=== PATIENT | female | born 1995 | race Caucasian/White ===

== ENCOUNTER 2016-12-22 14:45 | Emergency (ER) | payer MEDICAID ==
[2016-12-22 14:51] VITALS: BP 103/68; TEMP 97.5
--- NOTE | 2016-12-22 15:23 | EDPHY ---
H & P Time Seen by Provider: 12/22/16 15:12 HPI/ROS: CHIEF COMPLAINT: Medication refill. HISTORY OF PRESENT ILLNESS: The patient is a 21-year-old female with history of asthma, now 22 weeks , requesting a steroid inhaler. The patient recently had bronchitis and was given an inhaler. She recently ran out and is requesting a refill. The patient is unsure of the type of inhaler she uses. She states she continues to feel short of breath after walking. She denies chest pain. REVIEW OF SYSTEMS: A comprehensive 10 point review of systems is otherwise negative aside from elements mentioned in the history of present illness. Past Medical/Surgical History: Asthma, Currently 22 weeks . Tachycardia Social History: Nonsmoker. Smoking Status: Never smoked Physical Exam: General Appearance: Alert, pleasant Eyes: Pupils equal and round, no conjunctival pallor or injection ENT, Mouth: Mucous membranes moist Neck: Normal inspection Respiratory: Lungs are clear to auscultation Cardiovascular: Regular rate and rhythm Gastrointestinal: Abdomen is soft and non-tender Neurological: A&O, nonfocal, normal gait Skin: Warm and dry, no rash Extremities: Nontender, no pedal edema Psychiatric: Mood and affect normal Constitutional: Initial Vital Signs Temperature (C) 36.4 C 12/22/16 14:49 Heart Rate 121 H 12/22/16 14:49 Respiratory Rate 14 12/22/16 14:49 Blood Pressure 103/68 12/22/16 14:49 O2 Sat (%) 96 12/22/16 14:49 O2 Delivery Mode Room Air Allergies/Adverse Reactions: No Known Allergies Allergy (Unverified 12/22/16 14:51) Home Medications: Medication Instructions Recorded Fluticasone/Salmeter 250/50Mcg 1 puffs IH BID #1 disk 12/22/16 [Advair 250/50 (*)] Medical Decision Making ED Course/Re-evaluation: The patient has a history of asthma, she is currently 22 weeks , here requesting steroid inhaler refill. She states she feels short of breath after walking. No bronchospasm on lung exam today. Plan to discharge patient home with Advair. HR elevated; pt states HR always greater than 100. TSH in 05/15 normal. Departure - Departure Disposition: Home, Routine, Self-Care Clinical Impression: Medication refill Asthma Qualifiers: Asthma severity: unspecified severity Asthma complication type: uncomplicated Qualified Code(s): J45.909 - Unspecified asthma, uncomplicated Condition: Good Instructions: Fluticasone/Salmeterol (By breathing) Additional Instructions: Please followup with your primary care physician if you continue to have symptoms. Referrals: Theresa, Family Medicine [Other] - As per Instructions Prescriptions: Fluticasone/Salmeter 250/50Mcg [Advair 250/50 (*)] 1 puffs IH BID #1 disk Report Scribed for: Radha Moore Report Scribed by: Mamta Faye Date of Report: 12/22/16 Time of Report: 15:23 Physician Review and Approval Statement: 12/22/16 15:23 Portions of this note were transcribed by a medical scientific officer. I personally performed the history, physical exam, and medical decision-making; and confirmed the accuracy of the information in the transcribed note.
[2016-12-22 15:49] VITALS: PULSE 114; RESP 16; O2SAT 97
== END 2016-12-22 16:00 | disposition home or self-care (01) ==
DX: Z76.0 Encounter for issue of repeat prescription (principal); O99.512 Diseases of the respiratory system complicating pregnancy, second trimester; J45.909 Unspecified asthma, uncomplicated; Z3A.22 22 weeks gestation of pregnancy

== ENCOUNTER 2017-02-02 09:33 | Observation (INO) | payer MEDICAID | END 2017-02-02 15:45 | disposition home or self-care (01) | LOC: FLD 09:33 | PROVIDERS: ADMIT Obstetrics & Gynecology; ATTEND Obstetrics & Gynecology | DX: O99.89 Other specified diseases and conditions complicating pregnancy, childbirth and the puerperium (principal); Z3A.28 28 weeks gestation of pregnancy ==

== ENCOUNTER 2017-02-23 23:35 | Observation (INO) | payer MEDICAID ==
[2017-02-24] MEDS ORDERED: NIFEdipine 10 MG CAP PO ONE (00:15)
[2017-02-24] MEDS ORDERED: LR 1,000 ML IV ONE (00:30)
[2017-02-24 00:40] LABS: % IMMATURE GRANULYOCYTES 0.6 % (0.0-1.1); ABSOLUTE IMMATURE GRANULOCYTES 0.04 10^3/uL (0.00-0.10); ADD DIFF? NO; ADD MORPH? NO; ADD SCAN? NO; ATYPICAL LYMPHOCYTE FLAG 30 (0-99); FRAGMENT RBC FLAG 0 (0-99); HEMATOCRIT 25.2 % (38.0-47.0); HEMOGLOBIN 7.9 g/dL (12.6-16.3); LEFT SHIFT FLG 0 (0-99); LIPEMIA HEMOLYSIS FLAG 80 (0-99); MEAN CELL HEMOGLOBIN 23.7 pg (27.9-34.1); MEAN CELL HEMOGLOBIN CONCENTR. 31.3 g/dL (32.4-36.7); MEAN CELL VOLUME 75.4 fL (81.5-99.8); MEAN PLATELET VOLUME 9.9 fL (8.7-11.7); PLATELET CLUMPS FLAG 0 (0-99); PLATELET COUNT 290 10^3/uL (150-400); RED BLOOD CELL COUNT 3.34 10^6/uL (4.18-5.33); RED CELL DISTRIBUTION WIDTH 14.7 % (11.5-15.2)
[2017-02-24 00:47] LABS: COLOR PALE YELLOW; LEUKOCYTE ESTERASE,URINE NEGATIVE (NEGATIVE); NITRITE,URINE NEGATIVE (NEGATIVE)
[2017-02-24] MEDS ORDERED: ACETAMINOPHEN 325 MG TAB PO PRN (02:55)
== END 2017-02-24 06:30 | disposition home or self-care (01) ==
LOC: FLD 23:35 → UNDOADMOB 23:35 → FLD 02-24 00:39 → UNDODISOB 02-24 06:30
PROVIDERS: ADMIT Obstetrics & Gynecology; ATTEND Obstetrics & Gynecology
DX: O60.03 Preterm labor without delivery, third trimester (principal); Z3A.31 31 weeks gestation of pregnancy
CPT/HCPCS: G0378 ×2

== ENCOUNTER 2017-03-07 13:30 | Observation (INO) | payer MEDICAID ==
[2017-03-07 14:31] LABS: % IMMATURE GRANULYOCYTES 0.6 % (0.0-1.1); ABSOLUTE IMMATURE GRANULOCYTES 0.05 10^3/uL (0.00-0.10); ADD DIFF? NO; ADD MORPH? NO; ADD SCAN? NO; ATYPICAL LYMPHOCYTE FLAG 40 (0-99); FRAGMENT RBC FLAG 0 (0-99); HEMATOCRIT 27.8 % (38.0-47.0); HEMOGLOBIN 8.9 g/dL (12.6-16.3); LEFT SHIFT FLG 0 (0-99); LIPEMIA HEMOLYSIS FLAG 80 (0-99); MEAN CELL HEMOGLOBIN 23.5 pg (27.9-34.1); MEAN CELL VOLUME 73.5 fL (81.5-99.8); MEAN PLATELET VOLUME 9.8 fL (8.7-11.7); PLATELET CLUMPS FLAG 0 (0-99); PLATELET COUNT 371 10^3/uL (150-400); RED BLOOD CELL COUNT 3.78 10^6/uL (4.18-5.33); RED CELL DISTRIBUTION WIDTH 14.9 % (11.5-15.2)
[2017-03-07 14:49] LABS: ALANINE AMINOTRANSFERASE 19 IU/L (9-52); ASPARTATE AMINOTRANSFERASE 21 IU/L (14-46); BILIRUBIN,TOTAL 0.3 mg/dL (0.1-1.4); BILIRUBIN-CONJUGATED 0.1 mg/dL (0.0-0.5); BILIRUBIN-UNCONJUGATED 0.2 mg/dL (0.0-1.1); CREATININE 0.5 mg/dL (0.6-1.0); GLOMERULAR FILTRATION RATE > 60; LACTATE DEHYDROGENASE 502 IU/L (313-618); URIC ACID 3.3 mg/dL (2.5-6.8)
[2017-03-07] MEDS ORDERED: LR 500 ML IV ONE (15:15)
[2017-03-07] MEDS ORDERED: LR 1,000 ML IV SCH (15:30)
[2017-03-07 15:32] LABS: COLOR YELLOW; LEUKOCYTE ESTERASE,URINE NEGATIVE (NEGATIVE); NITRITE,URINE NEGATIVE (NEGATIVE)
--- NOTE | 2017-03-07 16:09 | OBPROG ---
OBG Labor Progress Note Assessment/Plan: Assessment:on admission contractions q2-3 minutes. After 1l of fluid irregular in timing. 1-7 minutes apart. denies leaking or bleeding feeling movement wet prep negative nitrazine and ferning negative iliv infused gbs completed speculum exam cervix appeared no different than exam by kieran galeas/paula mid no presenting part noted us for vernon Plan:continue observation 03/07/17 16:02 Subjective: I still feel pain with the contractions. I also feel pressure. Denies bleeding or leaking. Objective: 03/07/17 14:15 03/07/17 14:15 Uric Acid 3.3 mg/dL (2.5-6.8) 03/07/17 14:15 Total Bilirubin 0.3 mg/dL (0.1-1.4) 03/07/17 14:15 Conjugated Bilirubin 0.1 mg/dL (0.0-0.5) 03/07/17 14:15 Unconjugated Bilirubin 0.2 mg/dL (0.0-1.1) 03/07/17 14:15 AST 21 IU/L (14-46) 03/07/17 14:15 ALT 19 IU/L (9-52) 03/07/17 14:15 Lactate Dehydrogenase 502 IU/L (313-618) 03/07/17 14:15 - SVE Dilation (cm): 0 Effacement (%): 50 Station: -3 - Physical Exam General Appearance: WD/WN, alert, no apparent distress Respiratory: chest non-tender, lungs clear, normal breath sounds Cardiac/Chest: regular rate, rhythm Abdomen: normal bowel sounds Extremities: normal range of motion, Colt's sign (negative bilaterally) DTR- Lower Extremities: Knee (R): 1+, Knee (L): 1+ (no clonus) Skin: normal color, warm/dry Neuro/Psych: no motor/sensory deficits, alert, normal mood/affect, oriented x 3 Oxytocin Orders Assessment - Pre-Induction/Augmentation Assessment Gestational Age: 33 week(s) and 2 day(s) ICD10 Worksheet Patient Problems: Problems Problem Status Onset Premature uterine contractions Acute
--- NOTE | 2017-03-07 16:42 | GHP ---
[f rep st] HISTORY AND PHYSICAL DATE OF ADMISSION: 03/07/2017 HISTORY OF PRESENT ILLNESS: Patient is a 22-year-old, 1, para 0, with an EDC of 04/23/2017. Gestational age is 33 and 2/7 weeks who comes in with complaints of regular contractions since noon on 03/07/2017. To labor and delivery at around 2 p.m. on 03/07/2017. States has been feeling regular contractions since noon. Denies bleeding. States feeling positive movement. Denies leaking of fluid. The patient has been routinely seen since early in by a physician group in [place]. MEDICAL HISTORY: Alcohol use rarely. History of depression. Previous urinary tract infection, learning disabilities. SURGICAL HISTORY: The patient had knee surgery and finger surgery. FAMILY HISTORY: Patient is adopted. history: Anemia. 27.8 GYNECOLOGICAL HISTORY: Previous chlamydia in 2013. Previous past yeast infections as well as bacterial vaginosis infection. Immunity to varicella is nonimmune. MEDICATIONS: Taking vitamins, Advair, ferrous sulfate. SOCIAL HISTORY: The patient lives in an apartment. So here with the patient. Previous smoker. Alcohol use rarely. MArijuana use with the . PHYSICAL ASSESSMENT: GENERAL: Patient is awake, alert, oriented x3. LUNGS: Clear bilaterally. ABDOMEN: Bowel sounds are positive in all 4 quadrants. EXTREMITIES: DTRs are 1+ with no clonus. Homans sign is negative bilaterally. LABORATORY DATA: [facility] labs were within normal limits. AST was 21, ALT was 19, uric acid was 3.3. Today, a wet prep was completed, which was negative. Nitrazine was negative. Ferning was negative. A GBS was collected. A speculum exam was completed. Previous exam at 2 p.m. Physician, Dr. Zulema Shields , thought the patient was 1 cm posterior cervix. A speculum exam following that at 3:30 found the cervix to be unchanged at 1 cm, appeared to be long, posterior, with no presenting part noted. With leopolds cephalic US for mychal and presenting part MYCHAL 14 cephalic PLAN OF CARE: Continuous monitoring. 1 L of IV fluid. The patient continues to contract, although no longer regular. Pattern is now irregular in timing. heart rate is category 1. The patient continues to state that she feels pressure and pain with the contractions in lower abdomen. Will reassess in several hours for further POC. /[id number]/MODL MTDD
--- NOTE | 2017-03-07 17:51 | OBPROG ---
OBG Labor Progress Note Assessment/Plan: Assessment:cat 1 fhr denies leaking or bleeding feeling movement irregular contractions pain resolved deferred fu vaginal exam denies pain Plan:discharge to home with instructions pelvic rest until seen in the office on monday. Hydration, Discussed leaking, bleding, regular cramping. Continue PNV and iron. Fu in office on monday at the latest. Verbalized understanding of POC 03/07/17 16:02 03/07/17 17:47 03/07/17 17:50 Subjective: I am no longer feeling any pain Objective: 03/07/17 14:15 03/07/17 14:15 Uric Acid 3.3 mg/dL (2.5-6.8) 03/07/17 14:15 Total Bilirubin 0.3 mg/dL (0.1-1.4) 03/07/17 14:15 Conjugated Bilirubin 0.1 mg/dL (0.0-0.5) 03/07/17 14:15 Unconjugated Bilirubin 0.2 mg/dL (0.0-1.1) 03/07/17 14:15 AST 21 IU/L (14-46) 03/07/17 14:15 ALT 19 IU/L (9-52) 03/07/17 14:15 Lactate Dehydrogenase 502 IU/L (313-618) 03/07/17 14:15 Oxytocin Orders Assessment - Pre-Induction/Augmentation Assessment Gestational Age: 33 week(s) and 2 day(s) ICD10 Worksheet Patient Problems: Problems Problem Status Onset Premature uterine contractions Acute
== END 2017-03-07 19:21 | disposition home or self-care (01) ==
LOC: FLD 13:30
PROVIDERS: ADMIT Obstetrics & Gynecology; ATTEND Obstetrics & Gynecology
DX: O60.03 Preterm labor without delivery, third trimester (principal); Z3A.33 33 weeks gestation of pregnancy
CPT/HCPCS: G0378 ×2

== ENCOUNTER 2018-10-09 16:23 | Emergency (ER) | payer MEDICAID ==
[2018-10-09 16:45] VITALS: BP 117/67
--- NOTE | 2018-10-09 19:03 | EDPHY ---
H & P Smoking Status: Former smoker Time Seen by Provider: 10/09/18 19:03 HPI/ROS: CHIEF COMPLAINT: Right 4th and 5th digit pain concerns over fracture and/or dislocation HISTORY OF PRESENT ILLNESS: 23-year-old female was at [facility], was brought over to the ER for evaluation of right 4th and 5th digit pain after she fell onto this area earlier today. Reproducible pain with palpation range of motion. No deformity. No angulation. No discoloration. PHYSICAL EXAM (Prior to examination, patient consented to physical exam, hands were washed and my usual and customary physical exam procedures followed) 1) GENERAL: Well-developed, well-nourished, alert and oriented. Appears to be in no acute distress. 2) HEAD: Normocephalic 3) HEENT: sclera anicteric 4) LUNGS: Breathing comfortably. 5) SKIN: Intact skin. Negative kanavel sign throughout the fingers finger. No signs of infection. Tender to palpation 4th and 5th digit at the PIP joint with no deformity. No angulation. Intact skin. 6) MUSCULOSKELETAL: Unable or unwilling to assess flexor extensor function at the PIP joint secondary to pain. 7) NEUROLOGIC: Full sensation two-point discrimination intact (Luz Lilly) Constitutional: Initial Vital Signs Temperature (C) 36.7 C 10/09/18 16:42 Heart Rate 90 10/09/18 16:42 Respiratory Rate 16 10/09/18 16:42 Blood Pressure 117/67 10/09/18 16:42 O2 Sat (%) 96 10/09/18 16:42 O2 Delivery Mode Room Air Allergies/Adverse Reactions: pollen extracts Allergy (Verified 10/09/18 16:42) Home Medications: Medication Instructions Recorded Fluticasone/Salmeter 250/50Mcg 1 puffs IH BID #1 disk 12/22/16 [Advair 250/50 (*)] 1-1 Tablet 02/24/17 Ferrous Gluconate [Iron] 1 tab PO BID 03/07/17 MDM/Departure - MDM Imaging Results: Images reviewed myself (Luz Lilly) Procedures: Procedure: Splint A macho-tape splint was applied by ER transfill technician. After application of the splint I returned and re-examined the patient. The splint was adequately immobilizing the joint and distal to the splint the patient's circulation and sensation were intact. Patient shows no signs of compartment syndrome. Was given orthopedic precautions. (Luz Lilly) ED Course/Re-evaluation: No evidence of dislocation or fracture on x-ray. No evidence of infection on exam. Plan will be discharged with splinting, follow up with Hand surgery. Discussed with patient limitations of x-ray. Notably, non osseous injury is not ruled out. She feels comfortable being discharged. All questions and concerns addressed by myself. Patient feels comfortable being discharged. All questions and concerns addressed by myself. Patient given my usual and customary discharge precautions and instructions regarding their clinical impression. Care of patient under supervision of secondary supervising physician Dr Mendes . (Luz Lilly) The patient was evaluated and managed by the physician assistant professor of archaeology. I have reviewed this chart and I agree with the findings and plan of care as documented , as indicated by my signature. I am the secondary supervising physician. ( Ilene Mendes) - Depart Disposition: Home, Routine, Self-Care Clinical Impression: Finger sprain Condition: Good Instructions: Finger Sprain (ED) Additional Instructions: Return to the ER immediately if you experience discoloration, have worsening pain, numbness, tingling, or any other symptoms that concern you. If you received x-rays in the emergency department today, be advised, that ligamentous , tendon, muscular, and other non-bony injury cannot be fully ruled out. Try to keep your affected extremity elevated above the level of your chest, and keep cold packs on the affected area, for the next 48 hours. Adult Pain & Fever Control: We recommend Acetaminophen (Tylenol) and Ibuprofen (Motrin,Advil) for pain and fever control. When fever is high or pain severe, both drugs can be used at the same time, but at different intervals. Please note the time differences. Your dose is: Acetaminophen 650mg every 4 to 6 hours Ibuprofen 600mg every 6 hours with food OR Note: do not take Acetaminophen with Hydrocodone (Vicodin, Lortab) or Oycodone (Percocet). These medications also contain Acetaminophen. No more than 3000mg of Acetaminophen should be taken in 24 hours (for an adult). Referrals: Carrillo Santana MD [Medical Doctor] - 2-3 days, call for appt.
== END 2018-10-09 19:18 | disposition home or self-care (01) ==
DX: S63.614A Unspecified sprain of right ring finger, initial encounter (principal); S63.616A Unspecified sprain of right little finger, initial encounter; W19.XXXA Unspecified fall, initial encounter; Y92.9 Unspecified place or not applicable; Y93.9 Activity, unspecified